=== PATIENT | male | born 1970 | race Caucasian/White ===

== ENCOUNTER → 2018-06-05 10:17 | Outpatient (CLI) | payer BC, SELFPAY | PROVIDERS: Family Provider Family Medicine; PCP Family Medicine; Referring Provider Family Medicine; Visit Provider Family Medicine | DX: G47.30 Sleep apnea, unspecified (principal); R06.83 Snoring; R53.83 Other fatigue | CPT/HCPCS: 95806 ==

== ENCOUNTER 2023-07-06 09:21 | Day surgery (SDC) | payer BC, SELFPAY ==
--- NOTE | 2023-07-06 | COLBX_PTH ---
PATHOLOGY RESULTS PATIENT: RIVERA FERNANDES LOC: EN U#:[id number] AGE/SX: 53/M ROOM: RE07/06/[address]: Dr. Anderson Yeh DO : 1970 BED: DIS: 07/06/2023 SPEC #: [id number] RECD: 07/06/23 12:54 STATUS: MYLES REQ #: [id number] SANAM: 07/06/23 00:[address]: Anderson Yeh DEPT: SURGICAL PATHOLOGY RECD BY: Adam Mcgovern ENTERED: 07/06/23 12:55 SP TYPE: COLON BX OTHR DR: Dr. Ravindra Woodward DO Tissues: Sigmoid colon biopsy Procedures: Surgery Specimen Level IV HEADER OPERATION: Colonoscopy - open access with biopsy PRE-OP DIAGNOSIS: Screening TISSUE SUBMITTED: Sigmoid polyp biopsy MICROSCOPIC DIAGNOSIS Sigmoid colon polyp, biopsy: Tubular adenoma. AM:alfred 07/07/2023 MICROSCOPIC DESCRIPTION Slides are reviewed. GROSS DESCRIPTION Received in fixative is one container labeled with the patient's name and designated sigmoid polyp biopsy. The specimen consists of one irregular fragment of light ballesteros soft tissue that measures 0.4 x 0.3 x 0.1 cm. The specimen is totally submitted in one cassette. / SJ:alfred 07/06/2023 TC:5 CPT: 58390
[2023-07-06 09:47] VITALS: BP 109/85; PULSE 86; RESP 16; TEMP 36.6; O2SAT 97; BMI 27.6
[2023-07-06] MEDS: Lactated Ringers 1,000 ML 15 ML IV (09:49)
--- NOTE | 2023-07-06 10:31 | HP.PCM_ITS ---
HPI - General General Date of Admission: 07/06/23 Date of Service: 07/06/23 Chief Complaint: Screening colonoscopy HPI Narrative RIVERA FERNANDES, is a 53 M who presents today for screening colonoscopy. He has never had a colonoscopy in the past. He does not have abdominal pain. He does not have any cramping. Denies any chest pain or shortness of breath. Overall he is in very good health. [facility] Medical History Laceration of left thumb Wears glasses Home Medications NK 07/04/23 [History Last Taken Unknown] Allergy/AdvReac Type Severity Reaction Status Date / Time No Known Allergies Allergy Verified 07/06/23 09:32 Surgical History History of repair of ACL Hx laparoscopic cholecystectomy Social History (Updated 05/26/23 @ 08:54 by Eryn Mitchell) household members: spouse current occupational status: employed Smoking Status: Former smoker ROS Review of Systems ROS Unobtainable: other Constitutional Constitutional: Denies fatigue, fever(s), poor appetite, weight gain or weight loss ENT HEENT: Denies mouth lesions Cardiovascular Cardiovascular: Denies abdominal bloating, abdominal edema or abdominal pain Respiratory/Chest Respiratory/Chest: Denies change in mental status, change in phlegm color, chest congestion or chest tightness Gastrointestinal Gastrointestinal: Denies belching, bloating, change in bowel habits, change in stool character, chewing difficulty, coffee ground emesis, constipation, cramping, diarrhea, dyspepsia, dysphagia, early satiety, excessive flatus, fecal incontinence, heartburn, hematemesis, hematochezia, hemorrhoids, loose stools, melena, nausea, odynophagia, rectal bleeding, tenesmus, vomiting or weight changes Genitourinary Genitourinary: Denies abdominal discomfort, burning urination or itching Musculoskeletal Musculoskeletal: Reports as per HPI; Denies muscle weakness or myalgias Integumentary Integumentary: Denies jaundice Neurologic Neurologic: Denies lack of coordination or weakness Psychiatric Psychiatric: Denies confusion, depression, memory loss, mood swings, paranoia or suicidal ideation Endocrine Endocrinology: Denies systems reviewed and no addt'l complaints, except as documented Hematologic/Lymphatic Hematologic/Lymphatic: Denies anemia, easy bleeding, easy bruising or lymphadenopathy Allergic/Immunologic Allergic/Immunologic: Denies systems reviewed and no addt'l complaints, except as documented Vital Signs Vital Signs Vital Signs: 07/06/23 09:47 07/06/23 09:47 Temperature 97.9 F Temperature Source Temporal Pulse Rate 86 Respiratory Rate 16 Respiratory Pattern Normal Blood Pressure 109/85 H Blood Pressure Mean 93 Blood Pressure Source Monitor Blood Pressure Position Semi-Fowlers Blood Pressure Location Left Arm Pulse Ox 97 Oxygen Delivery Method Room Air Weight Weight: 209 lb 7.026 oz Body Mass Index (BMI) 27.6 Physical Exam Const alert General Appearance: cooperative Orientation / Consciousness: oriented to person HEENT hearing grossly normal bilaterally Head and Scalp: normal to inspection Face and Sinus: face symmetric Nose: external nose normal Mouth: oral and palatal mucosa normal Eyes conjunctivae normal General Eye: normal appearance of both eyes Neck full ROM General: normal visual inspection Lymph Lymphatic: no lymphadenopathy noted Chest inspection of chest normal and palpation of chest normal Chest: symmetrical chest wall rise Resp normal respiratory effort Effort and Inspection: able to speak in complete sentences Cardio regular rate GI non-distended Percussion: normal to percussion Rectal Exam: deferred Neuro Speech: speech normal Gait (Neuro): normal gait Assessment & Plan Assessment/Plan (1) Encounter for screening for malignant neoplasm of colon: PLAN: He was explained alternatives, risk, benefits including not withstanding bleeding, infection, sepsis, perforation, need for emergent surgery and . He will have an ASA of 2.
[2023-07-06 10:56] VITALS: BP 109/85; BP 87/56; PULSE 65; RESP 16; TEMP 36.4; O2SAT 98
--- NOTE | 2023-07-06 10:59 | OP.CCLET_ITS ---
07/06/2023 Ravindra Woodward [address] [place] [address] Re : Colonoscopy procedure for Nicko Dolan Dear Dr. Woodward This procedure was performed on Thursday, July 06, 2023. My impressions and recommendations are as follows: Impressions : - Diverticulosis in the recto-sigmoid colon and in the sigmoid colon. - One 5 mm polyp in the sigmoid colon, removed with a cold snare. Resected and retrieved. - The examination was otherwise normal on direct and retroflexion views. Recommendations : - Discharge patient to home. - Resume previous diet. - Continue present medications. - Await pathology results. - Repeat colonoscopy in 5 years for surveillance. My findings are described in the full procedure note, which is enclosed. If I can be of further assistance, please feel free to contact me at . Sincerely, Anderson Yeh, 07/06/2023 10:59:09 AM This report has been signed electronically.
--- NOTE | 2023-07-06 10:59 | OP.COLON_ITS ---
Patient Name: Nicko Dolan Procedure Date: 07/06/2023 10:25 AM Date of : 1970 Age: 53 Procedure: Colonoscopy Indications: Screening for colorectal malignant neoplasm Providers: Anderson Yeh DO Medicines: Monitored Anesthesia Care Patient Profile: This is a 53 year old male. Refer to note in patient chart for documentation of history and physical. Last Colonoscopy: none. The patient's first colonoscopy is today. Complications: No immediate complications. Procedure: Pre-Anesthesia Assessment: - Prior to the procedure, a History and Physical was performed, and patient medications and allergies were reviewed. The patient is competent. The risks and benefits of the procedure and the sedation options and risks were discussed with the patient. All questions were answered and informed consent was obtained. Patient identification and proposed procedure were verified by the physician in the pre-procedure area. Mental Status Examination: alert and oriented. Airway Examination: normal oropharyngeal airway and neck mobility. Respiratory Examination: clear to auscultation. CV Examination: normal. Prophylactic Antibiotics: The patient does not require prophylactic antibiotics. Prior Anticoagulants: The patient has taken no anticoagulant or antiplatelet agents. ASA Grade Assessment: II - A patient with mild systemic disease. After reviewing the risks and benefits, the patient was deemed in satisfactory condition to undergo the procedure. The anesthesia plan was to use monitored anesthesia care (MAC). Immediately prior to administration of medications, the patient was re-assessed for adequacy to receive sedatives. The heart rate, respiratory rate, oxygen saturations, blood pressure, adequacy of pulmonary ventilation, and response to care were monitored throughout the procedure. The physical status of the patient was re-assessed after the procedure. After I obtained informed consent, the scope was passed under direct vision. Throughout the procedure, the patient's blood pressure, pulse, and oxygen saturations were monitored continuously. The Colonoscope was introduced through the anus and advanced to the cecum, identified by appendiceal orifice and ileocecal valve. The colonoscopy was performed without difficulty. The patient tolerated the procedure well. The quality of the bowel preparation was adequate. The ileocecal valve, appendiceal orifice, and rectum were photographed. Scope In: 10:40:37 AM Scope Withdrawal Time 0 hours 7 minutes 59 seconds Scope Out: 10:51:01 AM Total Procedure Duration Time 0 hours 10 minutes 24 seconds Findings: The perianal and digital rectal examinations were normal. A few small-mouthed diverticula were found in the recto-sigmoid colon and sigmoid colon. A 5 mm polyp was found in the sigmoid colon. The polyp was sessile. The polyp was removed with a cold snare. Resection and retrieval were complete. Verification of patient identification for the specimen was done. Estimated blood loss was minimal. The exam was otherwise without abnormality on direct and retroflexion views. Impression: - Diverticulosis in the recto-sigmoid colon and in the sigmoid colon. - One 5 mm polyp in the sigmoid colon, removed with a cold snare. Resected and retrieved. - The examination was otherwise normal on direct and retroflexion views. Recommendation: - Discharge patient to home. - Resume previous diet. - Continue present medications. - Await pathology results. - Repeat colonoscopy in 5 years for surveillance. Procedure Code(s): --- Professional --- 48764, Colonoscopy, flexible; with removal of tumor(s), polyp(s), or other lesion(s) by snare technique CPT copyright 2021 [employer]. All rights reserved. The codes documented in this report are preliminary and upon real estate professional review may be revised to meet current compliance requirements. Anderson Yeh DO 07/06/2023 10:59:09 AM This report has been signed electronically. Number of Addenda: 0 Note Initiated On: 07/06/2023 10:25 AM
[2023-07-06 11:00] VITALS: BP 101/72; BP 109/85; PULSE 78; RESP 16; O2SAT 97
[2023-07-06 11:05] VITALS: BP 109/85; BP 99/73; PULSE 75; RESP 16; O2SAT 96
[2023-07-06 11:11] VITALS: BP 109/71; BP 109/85; PULSE 70; RESP 16; TEMP 36.7; O2SAT 97
[2023-07-06 11:31] VITALS: BP 109/85
== END 2023-07-06 11:49 | disposition home or self-care (01) ==
LOC: EN 09:23 → AC 09:25
PROVIDERS: PCP Family Medicine; Referring Provider Family Medicine; Visit Provider Internal Medicine Gastroenterology
PROC: 0DJD8ZZ Inspection of Lower Intestinal Tract, Via Natural or Artificial Opening Endoscopic (ICD-10-PCS; CPT 45378; principal; 2023-07-06 10:25)
DX: Z12.11 Encounter for screening for malignant neoplasm of colon (principal); D12.5 Benign neoplasm of sigmoid colon; K57.30 Diverticulosis of large intestine without perforation or abscess without bleeding; Z90.49 Acquired absence of other specified parts of digestive tract; Z87.891 Personal history of nicotine dependence
CPT/HCPCS: 45385; 88305; J7120; J2405

== ENCOUNTER → 2023-07-11 | Outpatient (CLI) | payer BC, SELFPAY ==
[2023-07-11 17:55] LABS: Absolute Lymphocyte Count 1.66 X10^3/uL (0.83-4.51); Absolute Neutrophil Count 2.8 X10^3/uL (2.0-7.7); Basophil# 0.02 X10^3/uL; Basophil% 0.4 % (0-1); Eosinophil# 0.06 X10^3/uL; Eosinophils% 1.2 % (0-5); Hematocrit 45.7 % (40-54); Hemoglobin 15.1 g/dL (13.0-16.5); Lymphocyte # 1.66 X10^3/ul (0.83-4.51); Lymphocyte % 32.9 % (19-41); Mean Corpuscular Hgb 27.1 pg (27.0-32.0); Mean Corpuscular Volume 81.9 fL (80-94); Monocyte# 0.45 X10^3/uL; Monocyte% 8.9 % (0-10); NRBC Flagged by Analyzer 0 % (0-5); Neutrophil # 2.84 X10^3/uL (2.7-7.7); Neutrophil % 56.2 % (47-70); Platelet Count 161 K/mm3 (150-450); RBC Distribution Width CV 13.4 % (11.6-14.6); RBC Distribution Width SD 39.6 fl (35.1-43.9); Red Blood Count 5.58 M/mm3 (4.6-6.2); White Blood Count 5.1 K/mm3 (4.4-11.0)
[2023-07-11 18:22] LABS: ALB/GLOB Ratio 1.1 RATIO (0.9-2.4); AST(SGOT) 26 U/L (15-37); Alanine Aminotransfer ALT/SGPT 41 U/L (16-61); Albumin, Serum 3.9 g/dL (3.2-5.0); Alkaline Phosphatase 58 U/L (45-117); Anion Gap 7 (5-15); BUN 15 mg/dL (7-18); BUN/Creat Ratio 13.9 RATIO (10-20); Calcium,Total 9.2 mg/dL (8.5-10.1); Chloride 109 mmol/L (98-107); Cholesterol 237 mg/dL (200); Creatinine, Serum 1.08 mg/dL (0.70-1.30); EST Glomerular Filtration Rate 76 mL/min (>60); Est Glom Filt Rate - Afr Amer 92 mL/min (>60); Globulin 3.7 g/dL (2.2-4.2); Glucose 95 mg/dL (74-106); High Density Lipoprotein 47 mg/dL; PSA,Total - Annual Screen 0.81 ng/mL (0.00-4.00); Potassium 4.1 mmol/L (3.5-5.1); Protein, Total 7.6 g/dL (6.4-8.2); Sodium Level 140 mmol/L (136-145); Triglycerides 143 mg/dL; Very Low Density Lipoprotein 29 mg/dL (5-40)
[2023-07-17 17:06] LABS: Testosterone, % Free 2.98 % (1.50-4.20); Testosterone, Free 13.92 ng/dL (5.00-21.00); Testosterone, Total 467 ng/dL (264-916)
== END | disposition home or self-care (01) ==
LOC: BFHLAB 15:19
PROVIDERS: PCP Family Medicine; Visit Provider Family Medicine
DX: Z00.00 Encounter for general adult medical examination without abnormal findings (principal); Z12.5 Encounter for screening for malignant neoplasm of prostate; N52.9 Male erectile dysfunction, unspecified
CPT/HCPCS: 36415; 80053; 80061; 84153; 84402; 84403; 85025; G0103

== ENCOUNTER 2024-04-23 12:30 | Outpatient (RCR) | payer OTHER, SELFPAY ==
--- NOTE | 2024-04-03 10:28 | HP.PTEVAL ---
Patient's Visit Information Visit Information Visit Information: RIVERA FERNANDES is a 54 year old M referred to Physical Therapy by Dr. Ravindra Woodward DO with a diagnosis of INTERVERTEBRAL DISC DEGENERATION. Date of Evaluation: 04/03/24 Physical Therapist: Howie Matias, PT, Cert MDT, OCS Visit Plan Frequency: 2x /Week Duration: 4 Weeks Plan: PT INTERVENTIONS GARRISON EX'S , MANUAL THERAPY ,DLS ,POSTURAL EX'S AND FLEXABILITY Subjective Subjective: This 54 y/o male presents for physical therapy with low back pain . Patient has lumbar pain 15 years and has episode of pain when lifting something heavy. Patient will have intermittent left lumbar pain with right lateral shift deformity and symptoms in leg . Patient last episode of right lateral shift deformity 2 weeks and took ~ 1week to get better. Patient noticed pain in left lumbar with sitting example and driving and [address] recommended PT and no medication or imaging. Aggravating factors sitting ,driving ,lifting, bending . Alleviating walking and standing. Coughing/sneezing+m . Bowel/bladder -. Patient sleeps good. Denies paresthesia/tingling.Patient has no prior PT or chiropractor. Tried massage. Patient condition affects QOL and function. Patient goals learn to how to eliminate pain. SOCIAL: VOCATION: insurance Pain Left: Pain Intensity (Out of 10): 2 Objective Objective: POSTURE: WFL ,but does get right lateral shift deformity GAIT: reciprocal pattern NEURO: denies paresthesia/tingling ,reflexes L3-4,L4-5,L5-S1 1/3 PALAPTION: unremarkable FLEXIBILITY: hamstrings min tight MMT: quads/hamstrings /hip 4/5 ,ankle 4/5 LUMBAR ROM: flexion min loss ,extension min loss ,side glides min loss Special Tests L/S Slump test left side: Positive L/S Slump test right side: Negative L/S Left Straight Leg Raise: Positive L/S Right Straight Leg Raise: Negative Lumbar Standing: Flexion - Mechanical Response: No effect Lumbar Standing: Flexion - Symptoms During Testing: Increases Lumbar Standing: Flexion - Symptoms After Testing: Worse Lumbar Standing: Extension - Mechanical Response: No effect Lumbar Standing: Extension - Symptoms During Testing: Decreases Lumbar Standing: Extension - Symptoms After Testing: Better Lumbar Standing: Right Side Glides - Mechanical Response: No effect Lumbar Standing: Right Side [place] - Symptoms During Testing: No effect Lumbar Standing: Right Side [place] - Symptoms After Testing: No effect Lumbar Standing: Left Side [place] - Mechanical Response: No effect Lumbar Standing: Left Side [place] - Symptoms During Testing: Increases Lumbar Standing: Left Side [place] - Symptoms After Testing: No worse Balance/Special Test Scores Oswestry Low Back Score: 12 Goals Goal 1:: Patient to be I with HEP for back Goal Time Frame: 4-6 Weeks Goal 2:: Patient to demonstrate 80% improvement with less less pain and improved function Goal Time Frame: 4-6 Weeks Goal 3:: Patient to improve lumbar ROM for function of recovery for job demands an lifting Goal Time Frame: 4-6 Weeks Goal 4:: Patient to improve back oswestry score by 5 points to improve QOL and function. Goal Time Frame: 4-6 Weeks Goal 5:: Patient to be I with posture/body mechanics and sitting posture 90% Goal Time Frame: 4-6 Weeks Rehabilitation Potential Physical Therapy Diagnosis: Patient has left lateral component and lumbar derangement with pain increases with motion testing and positioning worse with sitting and flexion thus benefit from skilled PT Rehabilitation Potential: Good Anticipated Interventions Text: Thank you for the opportunity to evaluate your patient. For Medicare and Medicare HMO plans, please review the plan of care and approve it. It will need to be FAXED BACK to us at [phone] for Medicare purposes. For Medicare only, by signing this I certify the plan of care. Please let me know if there are questions or concerns regarding this plan of care. Physician Signature: Date:
--- NOTE | 2024-04-23 13:08 | HP.PTEVAL ---
Patient's Visit Information Visit Information Visit Information: RIVERA FERNANDES is a 54 year old M referred to Physical Therapy by Dr. Ravindra Woodward DO with a diagnosis of INTERVERTEBRAL DISC DEGENERATION. Date of Evaluation: 04/03/24 Physical Therapist: Howie Matias, PT, Cert MDT, OCS Visit Plan Frequency: 2x /Week Duration: 4 Weeks Plan: PT INTERVENTIONS GARRISON EX'S , MANUAL THERAPY ,DLS ,POSTURAL EX'S AND FLEXABILITY Subjective Subjective: This 54 y/o male presents for physical therapy with low back pain . Patient has lumbar pain 15 years and has episode of pain when lifting something heavy. Patient will have intermittent left lumbar pain with right lateral shift deformity and symptoms in leg . Patient last episode of right lateral shift deformity 2 weeks and took ~ 1week to get better. Patient noticed pain in left lumbar with sitting example and driving and [address] recommended PT and no medication or imaging. Aggravating factors sitting ,driving ,lifting, bending . Alleviating walking and standing. Coughing/sneezing+m . Bowel/bladder -. Patient sleeps good. Denies paresthesia/tingling.Patient has no prior PT or chiropractor. Tried massage. Patient condition affects QOL and function. Patient goals learn to how to eliminate pain. SOCIAL: VOCATION: insurance Pain Left: Pain Intensity (Out of 10): 0 Objective Objective: POSTURE: WFL ,but does get right lateral shift deformity GAIT: reciprocal pattern NEURO: denies paresthesia/tingling ,reflexes L3-4,L4-5,L5-S1 1/3 PALAPTION: unremarkable FLEXIBILITY: hamstrings min tight MMT: quads/hamstrings /hip 4/5 ,ankle 4/5 LUMBAR ROM: flexion min loss ,extension min loss ,side glides min loss Special Tests L/S Slump test left side: Positive L/S Slump test right side: Negative L/S Left Straight Leg Raise: Positive L/S Right Straight Leg Raise: Negative Lumbar Standing: Flexion - Mechanical Response: No effect Lumbar Standing: Flexion - Symptoms During Testing: Increases Lumbar Standing: Flexion - Symptoms After Testing: Worse Lumbar Standing: Extension - Mechanical Response: No effect Lumbar Standing: Extension - Symptoms During Testing: Decreases Lumbar Standing: Extension - Symptoms After Testing: Better Lumbar Standing: Right Side [place] - Mechanical Response: No effect Lumbar Standing: Right Side [place] - Symptoms During Testing: No effect Lumbar Standing: Right Side [place] - Symptoms After Testing: No effect Lumbar Standing: Left Side [place] - Mechanical Response: No effect Lumbar Standing: Left Side [place] - Symptoms During Testing: Increases Lumbar Standing: Left Side [place] - Symptoms After Testing: No worse Balance/Special Test Scores Oswestry Low Back Score: 0 Goals Goal 1:: Patient to be I with HEP for back Goal Time Frame: 4-6 Weeks Goal 2:: Patient to demonstrate 80% improvement with less less pain and improved function Goal Time Frame: 4-6 Weeks Goal 3:: Patient to improve lumbar ROM for function of recovery for job demands an lifting Goal Time Frame: 4-6 Weeks Goal 4:: Patient to improve back oswestry score by 5 points to improve QOL and function. Goal Time Frame: 4-6 Weeks Goal 5:: Patient to be I with posture/body mechanics and sitting posture 90% Goal Time Frame: 4-6 Weeks Rehabilitation Potential Physical Therapy Diagnosis: Patient has left lateral component and lumbar derangement with pain increases with motion testing and positioning worse with sitting and flexion thus benefit from skilled PT Rehabilitation Potential: Good Anticipated Interventions Text: Thank you for the opportunity to evaluate your patient. For Medicare and Medicare HMO plans, please review the plan of care and approve it. It will need to be FAXED BACK to us at [phone] for Medicare purposes. For Medicare only, by signing this I certify the plan of care. Please let me know if there are questions or concerns regarding this plan of care. Physician Signature: Date:
--- NOTE | 2024-04-23 17:01 | HP.PTDCSUM ---
Discharge Summary D/C summary: It has been my pleasure to treat RIVERA FERNANDES referred by Dr. Ravindra Woodward DO, with the diagnosis of INTERVERTEBRAL DISC DEGENERATION for a total of 3 visit(s). Discharge Date: 04/23/24 Please see the following information for a summary of their discharge status. Subjective Subjective: Doing okay Pain Left: Pain Intensity (Out of 10): 0 Overall Improvement % Improvement: 100 Objective Objective/Function: POSTURE: WFL GAIT: reciprocal pattern NEURO: denies paresthesia/tingling ,reflexes L3-4,L4-5,L5-S1 1/3 PALAPTION: unremarkable FLEXIBILITY: hamstrings min tight MMT: quads/hamstrings /hip 4/5 ,ankle 4/5 LUMBAR ROM: flexion WNL ,extension WNL ,side glides WNL Goals Goal 1:: Patient to be I with HEP for back Goal Progress: Goal Met Goal 2:: Patient to demonstrate 80% improvement with less less pain and improved function Goal Progress: Goal Met Goal 3:: Patient to improve lumbar ROM for function of recovery for job demands an lifting Goal Progress: Goal Met Goal 4:: Patient to improve back oswestry score by 5 points to improve QOL and function. Goal Progress: Goal Met Goal 5:: Patient to be I with posture/body mechanics and sitting posture 90% Goal Progress: Goal Met Plan Plan: PT INTERVENTIONS GARRISON EX'S , MANUAL THERAPY ,DLS ,POSTURAL EX'S AND FLEXABILITY D/C Information d/c sentence: If there are questions or concerns regarding this patient's physical therapy, please feel free to call me at [phone]. Thank you for the referral of this patient. Sincerely, Howie Matias, PT, Cert MDT, OCS Balance/Gait/Functional tests Balance/Special Test Scores Oswestry Low Back Score: 0 Improvement % Improvement: 100
== END 2024-04-23 19:00 | disposition home or self-care (01) ==
LOC: PT 12:30
PROVIDERS: PCP Family Medicine; Referring Provider Family Medicine; Visit Provider Family Medicine
DX: M51.369 Other intervertebral disc degeneration, lumbar region without mention of lumbar back pain or lower extremity pain (principal)
CPT/HCPCS: 97110; 97161; 97530

== ENCOUNTER → 2025-03-20 | Outpatient (CLI) | payer OTHER, SELFPAY ==
[2025-03-20 12:09] LABS: Hematocrit 47.0 % (40-54); Hemoglobin 15.8 g/dL (13.0-16.5); Immature Granulocytes Count 0.010 X10^3/uL (0.0-0.0); Mean Corp Hgb Conc 33.6 g/dL (32-36); Mean Corpuscular Volume 84.2 fL (80-94); Mean Platelet Vol. 11.3 fl (6.2-12.0); NRBC Flagged by Analyzer 0 % (0-5); Platelet Count 133 K/mm3 (150-450); RBC Distribution Width CV 12.8 % (11.6-14.6); RBC Distribution Width SD 39.1 fl (35.1-43.9); Red Blood Count 5.58 M/mm3 (4.6-6.2); White Blood Count 4.9 K/mm3 (4.4-11.0)
[2025-03-20 12:57] LABS: AST(SGOT) 28 U/L (<=37); Alanine Aminotransfer ALT/SGPT 32 U/L (<=46); Albumin, Serum 4.4 g/dL (3.5-5.0); Alkaline Phosphatase 59 U/L (40-129); Anion Gap 10 (5-15); BUN 13 mg/dL (4-19); BUN/Creat Ratio 11.1 RATIO (10-20); Calcium,Total 9.5 mg/dL (7.6-11.0); Carbon Dioxide 25.3 mmol/L (21.0-32.0); Chloride 103 mmol/L (98-108); Cholesterol 262 mg/dL (<=200); Globulin 2.8 g/dL (2.2-4.2); Glucose 96 mg/dL (70-99); Low Density Lipoprotein Calc. 187 mg/dL; PSA,Total - Annual Screen 0.67 ng/mL (0.02-4.00); Potassium 4.4 mmol/L (3.3-5.1); Triglycerides 163 mg/dL; Very Low Density Lipoprotein 33 mg/dL (5-40); cholesterol:hdl ratio screen 5.90
== END | disposition home or self-care (01) ==
PROVIDERS: PCP Family Medicine; Visit Provider Family Medicine
DX: Z00.00 Encounter for general adult medical examination without abnormal findings (principal); Z12.5 Encounter for screening for malignant neoplasm of prostate
CPT/HCPCS: 36415; 80053; 80061; 84153; 85025; G0103